=== PATIENT | male | born 1960 | race Caucasian/White ===

== ENCOUNTER 2018-08-15 14:42 | Inpatient (IN) | payer OTHER ==
[~2018-08-15] VITALS: Ht 175.3 cm; Wt 130.2 kg
[2018-08-15] MEDS ORDERED: IV NORMAL SALINE 1,000ML 1,000 ML IV SCH (14:55)
--- NOTE | 2018-08-15 15:13 | PHYS DOC ---
Past History Past Medical History: High Cholesterol, Hypertension, Kidney Stones, NE, Renal Disease, Other Additional Past Medical Histor: chronic pain Past Surgical History: Cholecystectomy, Other Smoking: Cigarettes Alcohol Use: None Drug Use: None Adult General Chief Complaint Chief Complaint: WEAKNESS/GENERALIZED HPI HPI Patient is a 57-year-old male presents complaining of generalized weakness. Patient was seen at [facility] this morning after having a syncopal episode in his physician's office. He was at the physician's office trying to get a refill of his long-term narcotic pain medicine. Patient has recently been on clonidine for the withdrawal symptoms. He stopped the clonidine a day ago. He was found to have low potassium while at [facility], reportedly treated, and released. He presented back to his physician's office trying to get the refill of his narcotic medicine but continued to feel weak. The patient's physician called EMS for transport to the hospital. Patient reports that his physician is unable to fill the narcotic pain medicine early. Patient denies any chest pains or palpitations. Denies any new nausea, vomiting, or diarrhea. There is no focality to the weakness. [] Review of Systems Review of Systems Constitutional: Denies fever or chills [] Eyes: Denies change in visual acuity, redness, or eye pain [] HENT: Denies nasal congestion or sore throat [] Respiratory: Denies cough or shortness of breath [] Cardiovascular: No chest pain or palpitations[] GI: Denies abdominal pain, nausea, vomiting, bloody stools or diarrhea [] : Denies dysuria or hematuria [] Musculoskeletal: Denies back pain or joint pain [] Integument: Denies rash or skin lesions [] Neurologic: Denies headache, focal weakness or sensory changes [] Endocrine: Denies polyuria or polydipsia [] All other systems were reviewed and found to be within normal limits, except as documented in this note. Current Medications Current Medications Current Medications Medications (Trade) Dose Ordered Sig/Rebel Start Time Stop Time Status Last Admin Dose Admin Sodium Chloride 1,000 ml @ 1,000 mls/hr Q1H 08/15/18 14:55 08/15/18 15:54 Allergies Allergies Allergies Coded Allergies Type Severity Reaction Last Updated Verified No Known Drug Allergies 08/15/18 No Physical Exam Physical Exam Constitutional: Well developed, well nourished, no acute distress, non-toxic a ppearance. [] HENT: Normocephalic, atraumatic, bilateral external ears normal, oropharynx moist, no oral exudates, nose normal. [] Eyes: PERRLA, EOMI, conjunctiva normal, no discharge. [] Neck: Normal range of motion, no tenderness, supple, no stridor. [] Cardiovascular:Heart rate regular rhythm, no murmur [] Lungs & Thorax: Bilateral breath sounds clear to auscultation [] Abdomen: Bowel sounds normal, soft, no tenderness, no masses, no pulsatile masses. [] Skin: Warm, dry, no erythema, no rash. [] Back: No tenderness, no CVA tenderness. [] Extremities: No tenderness, no cyanosis, no clubbing, ROM intact, no edema. [] Neurologic: Alert and oriented X 3, normal motor function, normal sensory function, no focal deficits noted. [] Psychologic: Affect normal, judgement normal, mood normal. [] Current Patient Data Vital Signs Vital Signs Date Time Temp Pulse Resp B/P (MAP) Pulse Ox O2 Delivery O2 Flow Rate FiO2 08/15/18 14:50 97.7 54 21 96 Room Air EKG EKG EKG shows a sinus rhythm with no ST elevations. Heart rate of 55 bpm, normal axis, QTC of 433 ms. Interpreted by me at 1505[] Radiology/Procedures Radiology/Procedures PORTABLE CHEST 1V History: Weakness. Low blood pressure. Comparison with 05/23/2005 image. The heart size is mildly widened in transverse diameter, similar to prior study. No evidence of pneumothorax. No lobar consolidation or large pleural effusion. Limited visualization of the lung bases due to body habitus. IMPRESSION: Stable exam, no evidence of lobar consolidation.[] Course & Med Decision Making Course & Med Decision Making Pertinent Labs and Imaging studies reviewed. (See chart for details) ED course: Patient arrived, was placed in bed, and tolerated exam well. He was noted to be hypotensive initially which did improve with IV fluids. After the return of lab and imaging studies, these were discussed with the patient and family voiced understanding. Consultation was made with hospitalist service who graciously accepted the patient for admission. He was admitted in improved condition. Medical decision making: Patient with hypotensive episode and feeling of weakness in the face of recent hypokalemia. Records were obtained from [facility] that showed his potassium was 2.4 earlier today. Patient also has baseline renal disease which appears to be stable with his creatinine being 2.1 today as it was in the past. However, his liver function tests are also elevated at this ti me. He is being admitted for further evaluation and treatment.[] Dragon Disclaimer Dragon Disclaimer This electronic medical record was generated, in whole or in part, using a voice recognition dictation system. Departure Departure: Impression: Primary Impression: Weakness Additional Impressions: Hypotensive episode Hypokalemia Disposition: ADMITTED INPATIENT Admitting Physician: Saravanan Marcelo Condition: IMPROVED Referrals: LIAM BROWN MD (PCP) Problem Qualifiers RADHA YUSUF DO Aug 15, 2018 15:12
--- NOTE | 2018-08-15 15:17 | RAD ---
PORTABLE CHEST 1V History: Weakness. Low blood pressure. Comparison with 05/23/2005 image. The heart size is mildly widened in transverse diameter, similar to prior study. No evidence of pneumothorax. No lobar consolidation or large pleural effusion. Limited visualization of the lung bases due to body habitus. IMPRESSION: Stable exam, no evidence of lobar consolidation. Electronically signed by: Byron Shea MD (08/15/2018 3:14 PM) [id number]
[2018-08-15 15:24] LABS: BASO # 0.1 x10^3/uL (0.0-0.2); BASO % 1 % (0-3); EOS % 0 % (0-3); HEMATOCRIT 45.5 % (39.0-53.0); HEMOGLOBIN 15.8 g/dL (13.0-17.5); LYMPH # 0.8 x10^3/uL (1.0-4.8); LYMPH % 8 % (24-48); MEAN CORPUSCULAR HEMOGLOBIN 31 pg (25-35); MEAN CORPUSCULAR HGB CONC 35 g/dL (31-37); MEAN CORPUSCULAR VOLUME 89 fL (79-100); MONO # 0.6 x10^3/uL (0.0-1.1); MONO % 7 % (0-9); NEUT % 84 % (31-73); PLATELET COUNT 269 x10^3/uL (140-400); RED BLOOD COUNT 5.13 x10^6/uL (4.30-5.70); RED CELL DISTRIBUTION WIDTH 16.4 % (11.5-14.5); WHITE BLOOD COUNT 9.5 x10^3/uL (4.0-11.0)
[2018-08-15] MEDS ORDERED: IV RINGERS SOLUTION,LACTATED 1,000 ML IV ONE ×2 (15:30→17:15)
[2018-08-15 16:12] LABS: ALBUMIN/GLOBULIN RATIO 0.9 (1.0-1.7); CALCIUM 8.4 mg/dL (8.5-10.1); CREATININE 2.1 mg/dL (0.7-1.3); GFR 32.5; MAGNESIUM 2.1 mg/dL (1.8-2.4); TOTAL BILIRUBIN 2.9 mg/dL (0.2-1.0); TOTAL PROTEIN 6.3 g/dL (6.4-8.2)
[2018-08-15 16:38] LABS: BILIRUBIN,URINE SMALL (NEG); CLARITY,URINE CLOUDY; COLOR,URINE AMBER; GLUCOSE,URINE NEG (NEG); NITRITE,URINE NEG (NEG); UROBILINOGEN,URINE 4 mg/dL (0.2 mg/dL)
[2018-08-15 16:39] LABS: AMPHETAMINE/METHAMPHETAMINE NEG (NEG); BACTERIA,URINE FEW /HPF (0-FEW); BARBITURATES NEG (NEG); BENZODIAZEPINES POS (NEG); CANNABINOIDS NEG (NEG); COCAINE NEG (NEG); HYALINE CASTS, URINE OCC /HPF; METHADONE NEG (NEG); OPIATES NEG (NEG); PHENCYCLIDINE NEG (NEG); RBC,URINE 0 /HPF (0-2); SQUAMOUS EPITHELIAL CELL,UR OCC /LPF; WBC,URINE OCC /HPF (0-4)
[2018-08-15] MEDS ORDERED: ACETAMINOPHEN 325 MG TABLET PO PRN ×2 (17:15→17:45)
[2018-08-15] MEDS ORDERED: ONDANSETRON PF 4 MG/2 ML VIAL. IV PRN ×2 (17:15→17:45)
[2018-08-15] MEDS ORDERED: oxyCODONE IR 5 MG TABLET PO PRN ×2 (17:45)
[2018-08-15] MEDS ORDERED: METOCLOPRAMIDE HCL 10 MG/2 ML VIAL. IV PRN (17:45)
[2018-08-15] MEDS ORDERED: HYDROmorphone PF 1 MG/ML DISP.SYRIN IV PRN (17:45)
[2018-08-15] MEDS ORDERED: LACTULOSE 20 GM/30 ML SOLUTION. PO PRN (17:45)
--- NOTE | 2018-08-15 18:57 | HP ---
ADMIT DATE: 08/15/2018 ATTENDING PHYSICIAN: Dr. Carrasco. CHIEF COMPLAINT: Weakness. HISTORY OF PRESENT ILLNESS: The patient is a 57-year-old gentleman admitted through the ED. He was sent to the Emergency Department by his primary care doctor. Earlier this morning, he was seen at [facility] having a syncopal episode in the physician's office. He was dry, blood pressure was low, it lasted between 2-5 minutes. He had been on clonidine. In addition, he has had blood pressure medication and diuretic. He was quite dry. He was found to have low potassium, reportedly treated and released. He presented back to his physician's office, trying to get the refill the narcotic, but continued to feel weak. The patient's doctor called the EMS for transport to the hospital. In the ED, the potassium was replaced from 2.4 mEq up to 3.0 mEq. There were no arrhythmias. He has not had any nausea or vomiting. He was admitted then with dehydration. Clinically, he is dry, aggravated by his diuretics. PAST MEDICAL HISTORY: Significant for medullary sponge kidneys. He has multiple kidney stones. He has chronic kidney disease stage 4, essential hypertension, previous DE with little history. He does not drink any alcohol. He has had a previous cholecystectomy. CURRENT MEDICATIONS: Reviewed. He was taking lisinopril, hydrochlorothiazide, OxyContin, clonidine, which has been stopped. In the ED, he was given Lactated Ringer's solution, potassium supplementation, lactulose, hydromorphone, and Reglan. ALLERGIES: He has no reported drug allergy. SOCIAL HISTORY: He is a smoker, half a pack of cigarettes daily. He denies any alcohol use. FAMILY HISTORY: Father at age of stomach cancer. Mom at age 75 of heart disease. He is . He is disabled for the last 10 years. REVIEW OF SYSTEMS: Significant for his generalized weakness. He denied any palpitations. He denied any fevers or chills. He had a syncopal episode, but he did not have any seizure activity. No loss of bowel or bladder function. He denied any chest pain, palpitations. All other systems were reviewed and determined to be negative. PHYSICAL EXAMINATION: GENERAL: When I saw him, this is a pleasant, chronically ill-appearing gentleman. INITIAL VITAL SIGNS: In the ED showed a blood pressure 100 systolic. His heart rate was 54 and regular, respirations are unlabored. Oxygen saturation 96% on room air. HEENT: Head is without trauma. Pupils are reactive. Sclerae are nonicteric. The oropharynx is clear. NECK: Supple. No bruits identified. LUNGS: Otherwise clear. CARDIOVASCULAR: Irregular heart tones. No gallops, no murmurs. Peripheral pulses are palpable. ABDOMEN: Soft, scaphoid, nontender. No flank tenderness. Bowel sounds are hypoactive. EXTREMITIES: Show no cyanosis or edema. NEUROLOGIC: Focally intact. No focal deficits. Speech is fluent. SKIN: Warm, dry. No lymphangitis, LABORATORY DATA: His admission hemoglobin was 15.8 g/dL in a hemoconcentrated state. White count 9500, platelets are adequate. Chemistry panel showed sodium 133 mEq, potassium 3.0 mEq per liter. Creatinine is 2.1 mg per dL, which is close to his baseline. BUN is 18, anion gap is 8. Bilirubin is elevated at 2.9. Transaminases slightly elevated with AST of 285, alkaline phosphatase is 154, total protein 6.3 grams per liter. IMPRESSION: 1. A 57-year-old gentleman with dehydration that is symptomatic. 2. Hypokalemia, aggravated by hydrochlorothiazide. 3. Essential hypertension. 4. Chronic kidney disease stage 4 and he is close to baseline. 5. Elevated liver functions. Etiology is unclear. He denies any alcohol use. 6. Generalized debilitation. 7. History of kidney stones. 8. History of medullary sponge kidney. PLAN: 1. Admit to the inpatient unit. 2. I have held his lisinopril and hydrochlorothiazide. 3. Continue pain meds. 4. Gentle IV hydration. 5. Serial chemistries. 6. Diet as tolerated. 7. Pain management. TREVIN CARRASCO MD DR: GRACIELA/rishi JOB#: [id number] / [id number] Alexandra Henning MD
[2018-08-15] MEDS ORDERED: ALPR1TAB6 PO (21:48)
[2018-08-15] MEDS ORDERED: NALO12.5 PO (21:48)
[2018-08-15] MEDS ORDERED: LOSA1TAB22 PO (21:48)
[2018-08-15] MEDS ORDERED: TIZA4CAP PO (21:48)
[2018-08-15] MEDS ORDERED: CRESTOR40 MG PO (21:48)
[2018-08-15] MEDS ORDERED: METO25TA2 PO (21:48)
[2018-08-15] MEDS ORDERED: POTA10TA10 PO (21:48)
[2018-08-15] MEDS ORDERED: GLUC-12 PO (21:48)
[2018-08-15] MEDS ORDERED: NITR0.4T22 SL (21:48)
[2018-08-15] MEDS ORDERED: CLOP75TA PO (21:48)
[2018-08-15] MEDS ORDERED: AMLO10TA8 PO (21:48)
[2018-08-15] MEDS ORDERED: ASPI-39 PO (21:48)
[2018-08-15] MEDS ORDERED: ALLO100T PO (21:48)
[2018-08-15] MEDS ORDERED: OXYC15TA60 PO (21:48)
[2018-08-15 22:03] VITALS: BP 127/72
[2018-08-15] MEDS: IV NORMAL SALINE 1,000ML 1,000 ML IV SCH (22:41)
[2018-08-15 23:17] VITALS: BP 138/79
[2018-08-16] MEDS: IV NORMAL SALINE 1,000ML 1,000 ML IV SCH ×2 (04:30→14:30)
[2018-08-16 05:24] VITALS: BP 142/89
[2018-08-16 06:59] LABS: BASO % 0 % (0-3); EOS % 0 % (0-3); HEMATOCRIT 44.5 % (39.0-53.0); HEMOGLOBIN 15.8 g/dL (13.0-17.5); LYMPH # 0.4 x10^3/uL (1.0-4.8); LYMPH % 4 % (24-48); MEAN CORPUSCULAR HEMOGLOBIN 31 pg (25-35); MEAN CORPUSCULAR HGB CONC 35 g/dL (31-37); MEAN CORPUSCULAR VOLUME 88 fL (79-100); MONO # 0.6 x10^3/uL (0.0-1.1); MONO % 6 % (0-9); NEUT # 9.2 x10^3uL (1.8-7.7); NEUT % 89 % (31-73); PLATELET COUNT 201 x10^3/uL (140-400); RED BLOOD COUNT 5.05 x10^6/uL (4.30-5.70); RED CELL DISTRIBUTION WIDTH 16.5 % (11.5-14.5); WHITE BLOOD COUNT 10.3 x10^3/uL (4.0-11.0)
[2018-08-16] MEDS ORDERED: tiZANidine 4 MG TABLET. PO PRN (07:00)
[2018-08-16 07:15] LABS: ALBUMIN 3.1 g/dL (3.4-5.0); ALBUMIN/GLOBULIN RATIO 0.9 (1.0-1.7); CALCIUM 8.8 mg/dL (8.5-10.1); CREATININE 1.7 mg/dL (0.7-1.3); TOTAL BILIRUBIN 5.3 mg/dL (0.2-1.0); TOTAL PROTEIN 6.7 g/dL (6.4-8.2)
[2018-08-16] MEDS ORDERED: oxyCODONE ER 15 MG TAB.ER.12H PO PRN (07:15)
[2018-08-16 07:20] LABS: POTASSIUM 2.8 mmol/L (3.5-5.1)
[2018-08-16 07:21] LABS: GFR 41.5
[2018-08-16] MEDS: POTASSIUM CHLORIDE 20 MEQ TABLET.ER. PO SCH ×3 (07:24→21:08)
[2018-08-16] MEDS ORDERED: MAGNESIUM SULFATE 1GM 100 ML IV ONE (07:30)
[2018-08-16] MEDS ORDERED: POTASSIUM CHLORIDE 20 MEQ/15 ML ORAL LIQUID. FT SCH (07:30)
[2018-08-16] MEDS: ASPIRIN 81 MG TAB.CHEW PO SCH (08:46)
[2018-08-16] MEDS: ALLOPURINOL 100 MG TABLET. PO SCH (08:46)
[2018-08-16] MEDS: amLODIPine BESYLATE 10 MG TABLET PO SCH (08:46)
[2018-08-16] MEDS: METOPROLOL SUCC 24HR ER 25 MG TAB.ER.24H. PO SCH (08:46)
[2018-08-16] MEDS: ALPRAZolam 0.5 MG TABLET PO SCH ×2 (08:46→21:08)
--- NOTE | 2018-08-16 09:59 | PDOC ---
SUBJECTIVE: CC: weakness at bedside Confused this Am paranoid, he called the police and said his was stealing from him His PCP is trying to wean him off narcotics creatinine is better, Potassium is being replaced However, liver panel is abnormal Bilirubin up to 5.9 mg/dl transanimases up. alkaline phosphatase not particularly high. Pt denies significant alcohol ingestion, nor IV drug use, corroborated by his . OBJECTIVE: Problems: Problems Medical Problems: (1) Hypokalemia Status: Acute (2) Hypotensive episode Status: Acute (3) Weakness Status: Acute Creatinine 1.7 mg/dl Bilirubin and transaminases elevated Vital Signs: Vital Signs Date Time Temp Pulse Resp B/P (MAP) Pulse Ox O2 Delivery O2 Flow Rate FiO2 08/16/18 08:46 77 142/89 08/16/18 05:24 98.4 96 Room Air 08/15/18 18:23 18 I & O Intake and Output 08/16/18 07:00 Intake Total 750 ml Balance 750 ml Intake Oral 450 ml IV Total 300 ml # Voids 3 # Bowel Movements 1 Labs: Laboratory Tests Test 08/15/18 15:08 08/15/18 15:35 08/15/18 16:10 08/16/18 06:40 White Blood Count 9.5 x10^3/uL (4.0-11.0) 10.3 x10^3/uL (4.0-11.0) Red Blood Count 5.13 x10^6/uL (4.30-5.70) 5.05 x10^6/uL (4.30-5.70) Hemoglobin 15.8 g/dL (13.0-17.5) 15.8 g/dL (13.0-17.5) Hematocrit 45.5 % (39.0-53.0) 44.5 % (39.0-53.0) Mean Corpuscular Volume 89 fL (79-100) 88 fL (79-100) Mean Corpuscular Hemoglobin 31 pg (25-35) 31 pg (25-35) Mean Corpuscular Hemoglobin Concent 35 g/dL (31-37) 35 g/dL (31-37) Red Cell Distribution Width 16.4 % (11.5-14.5) 16.5 % (11.5-14.5) Platelet Count 269 x10^3/uL (140-400) 201 x10^3/uL (140-400) Neutrophils (%) (Auto) 84 % (31-73) 89 % (31-73) Lymphocytes (%) (Auto) 8 % (24-48) 4 % (24-48) Monocytes (%) (Auto) 7 % (0-9) 6 % (0-9) Eosinophils (%) (Auto) 0 % (0-3) 0 % (0-3) Basophils (%) (Auto) 1 % (0-3) 0 % (0-3) Neutrophils # (Auto) 8.0 x10^3uL (1.8-7.7) 9.2 x10^3uL (1.8-7.7) Lymphocytes # (Auto) 0.8 x10^3/uL (1.0-4.8) 0.4 x10^3/uL (1.0-4.8) Monocytes # (Auto) 0.6 x10^3/uL (0.0-1.1) 0.6 x10^3/uL (0.0-1.1) Eosinophils # (Auto) 0.0 x10^3/uL (0.0-0.7) 0.0 x10^3/uL (0.0-0.7) Basophils # (Auto) 0.1 x10^3/uL (0.0-0.2) 0.0 x10^3/uL (0.0-0.2) Troponin I Quantitative 0.025 ng/mL (0-0.055) Prothrombin Time 10.8 SEC (9.4-11.4) Prothromb Time International Ratio 1.1 (0.9-1.1) Sodium Level 133 mmol/L (136-145) 136 mmol/L (136-145) Potassium Level 3.0 mmol/L (3.5-5.1) 2.8 mmol/L (3.5-5.1) Chloride Level 95 mmol/L (98-107) 97 mmol/L (98-107) Carbon Dioxide Level 30 mmol/L (21-32) 28 mmol/L (21-32) Anion Gap 8 (6-14) 11 (6-14) Blood Urea Nitrogen 18 mg/dL (8-26) 15 mg/dL (8-26) Creatinine 2.1 mg/dL (0.7-1.3) 1.7 mg/dL (0.7-1.3) Estimated GFR (Cockcroft-Gault) 32.5 41.5 BUN/Creatinine Ratio 9 (6-20) 9 (6-20) Glucose Level 170 mg/dL (70-99) 140 mg/dL (70-99) Calcium Level 8.4 mg/dL (8.5-10.1) 8.8 mg/dL (8.5-10.1) Magnesium Level 2.1 mg/dL (1.8-2.4) Total Bilirubin 2.9 mg/dL (0.2-1.0) 5.3 mg/dL (0.2-1.0) Aspartate Amino Transf (AST/SGOT) 285 U/L (15-37) 297 U/L (15-37) Alanine Aminotransferase (ALT/SGPT) 163 U/L (16-63) 317 U/L (16-63) Alkaline Phosphatase 154 U/L (46-116) 193 U/L (46-116) Total Protein 6.3 g/dL (6.4-8.2) 6.7 g/dL (6.4-8.2) Albumin 3.0 g/dL (3.4-5.0) 3.1 g/dL (3.4-5.0) Albumin/Globulin Ratio 0.9 (1.0-1.7) 0.9 (1.0-1.7) Urine Collection Type Unknown Urine Color Samra Urine Clarity Cloudy Urine pH 6.0 Urine Specific [place] 1.015 Urine Protein 30 mg/dl (NEG-TRACE) Urine Glucose (UA) Neg mg/dL (NEG) Urine Ketones (Stick) Neg mg/dL (NEG) Urine Blood Trace (NEG) Urine Nitrite Neg (NEG) Urine Bilirubin Small (NEG) Urine Urobilinogen Dipstick 4 mg/dL (0.2 mg/dL) Urine Leukocyte Esterase Neg (NEG) Urine RBC 0 /HPF (0-2) Urine WBC Occ /HPF (0-4) Urine Squamous Epithelial Cells Occ /LPF Urine Bacteria Few /HPF (0-FEW) Urine Hyaline Casts Occ /HPF Urine Mucus Slight /LPF Urine Opiates Screen Neg (NEG) Urine Methadone Screen Neg (NEG) Urine Barbiturates Neg (NEG) Urine Phencyclidine Screen Neg (NEG) Urine Amphetamine/Methamphetamine Neg (NEG) Urine Benzodiazepines Screen Pos (NEG) Urine Cocaine Screen Neg (NEG) Urine Cannabinoids Screen Neg (NEG) Urine Ethyl Alcohol Neg (NEG) Physical Exam: HEENT; some scleral icterus Neck supple Lungs: clear CV RRR Abd: soft, nontender, no guarding nor rebound Ext: trace edema Neuro: alert, speech fluent. ASSESSMENT: Dehydration, rehydrated Hypokalemia due to diuretics Confusion related Narcotic withdrawl Abnormal LFTs and Bilirubin Medullary sponge kidneys Chronic pain syndrome PLAN: Continue IV hydration Serial chemistries Potassium and Magnesium replacement if LFTs remain elevated, Triphase CT scan liver and hepatitis serology TREVIN CARRASCO MD Aug 16, 2018 09:59
[2018-08-16 11:18] VITALS: BP 148/80
[2018-08-16 16:25] VITALS: BP 158/80
[2018-08-16 19:10] VITALS: BP 149/79
[2018-08-16] MEDS ORDERED: ATORVASTATIN CALCIUM 20 MG TABLET PO SCH (21:00)
[2018-08-16] MEDS ORDERED: CLOPIDOGREL BISULFATE 75 MG TABLET PO SCH (21:00)
[2018-08-16 22:15] VITALS: BP 157/74
[2018-08-17] MEDS: IV NORMAL SALINE 1,000ML 1,000 ML IV SCH (03:22)
[2018-08-17 05:46] VITALS: BP 129/72
[2018-08-17 07:19] LABS: BASO % 1 % (0-3); EOS % 0 % (0-3); HEMATOCRIT 43.3 % (39.0-53.0); LYMPH # 0.4 x10^3/uL (1.0-4.8); LYMPH % 5 % (24-48); MEAN CORPUSCULAR HEMOGLOBIN 31 pg (25-35); MEAN CORPUSCULAR HGB CONC 35 g/dL (31-37); MEAN CORPUSCULAR VOLUME 90 fL (79-100); MONO # 0.5 x10^3/uL (0.0-1.1); MONO % 7 % (0-9); NEUT # 6.8 x10^3uL (1.8-7.7); NEUT % 88 % (31-73); PLATELET COUNT 205 x10^3/uL (140-400); RED BLOOD COUNT 4.84 x10^6/uL (4.30-5.70); RED CELL DISTRIBUTION WIDTH 16.8 % (11.5-14.5); WHITE BLOOD COUNT 7.7 x10^3/uL (4.0-11.0)
[2018-08-17 07:26] LABS: ALBUMIN 2.9 g/dL (3.4-5.0); ALBUMIN/GLOBULIN RATIO 0.8 (1.0-1.7); CALCIUM 8.7 mg/dL (8.5-10.1); CREATININE 1.7 mg/dL (0.7-1.3); DIRECT BILIRUBIN 2.7 mg/dL (0.0-0.2); GFR 41.5; POTASSIUM 3.2 mmol/L (3.5-5.1); TOTAL BILIRUBIN 3.8 mg/dL (0.2-1.0); TOTAL PROTEIN 6.6 g/dL (6.4-8.2)
[2018-08-17] MEDS: POTASSIUM CHLORIDE 20 MEQ TABLET.ER. PO SCH ×2 (08:00→08:29)
[2018-08-17] MEDS: amLODIPine BESYLATE 10 MG TABLET PO SCH (08:28)
[2018-08-17] MEDS: ASPIRIN 81 MG TAB.CHEW PO SCH (08:28)
[2018-08-17] MEDS: ALLOPURINOL 100 MG TABLET. PO SCH (08:28)
[2018-08-17 08:29] VITALS: BP 129/72
[2018-08-17] MEDS: METOPROLOL SUCC 24HR ER 25 MG TAB.ER.24H. PO SCH (08:29)
[2018-08-17] MEDS: ALPRAZolam 0.5 MG TABLET PO SCH (08:29)
--- NOTE | 2018-08-17 17:58 | DS ---
DATE OF DISCHARGE: 08/17/2018 ATTENDING PHYSICIAN: Dr. Carrasco. FINAL DISCHARGE DIAGNOSES: 1. Dehydration, symptomatic. 2. Hypokalemia, aggravated by hydrochlorothiazide. 3. Essential hypertension. 4. Chronic kidney disease stage 4. 5. Elevated liver function, etiology unclear, improving. 6. Generalized debilitation. 7. History of medullary sponge kidneys. 8. Multiple kidney stones in the past. HOSPITAL COURSE: This is a 57-year-old gentleman with dehydration sent over by his primary care physician. He had been on clonidine. He was also hypotensive. Potassium was low down to 2.4 mEq. He was admitted for further treatment and evaluation. He has underlying chronic kidney disease due to medullary sponge kidneys and multiple stones in the past. PHYSICAL EXAMINATION: Please see the dictated note. PERTINENT LABORATORY AND X-RAY STUDIES. Admission hemoglobin 15.8 g/dL with a normal white count at 9500. Chemistry panel showed potassium replaced up to 3.2 mEq with potassium and magnesium supplementation. Serum creatinine has stabilized and is holding at 1.7 mg/dL, BUN was 15. His total bilirubin peaked at a level of 5.3 on the second hospital day; repeated the next day, it was down to 3.8. AST, ALT, and alkaline phosphatase all improved and were trending downwards. His ammonia level was 10. COURSE IN THE HOSPITAL: The patient was admitted with dehydration and hypokalemia. He was given IV hydration. Diet was advanced. Pain managed and serial chemistries were drawn. Potassium and magnesium supplementation were added. He had elevated liver enzymes; etiology to be unclear. Bilirubin peaked at 5.9, but it trended downwards. I had hoped to keep him here for a couple more days, he was feeling better, he wanted to go home. On the third hospital day, he had no further symptoms. His blood pressure was normotensive and he wanted to go home. I felt this is reasonable. Therefore, he is discharged home with continuation of his amlodipine, potassium supplementation, allopurinol, alprazolam, aspirin daily, Plavix daily, chondroitin sulfate, metoprolol, Movantik, K-Dur supplementation and Crestor; doses unchanged. For now, I took the liberty of holding his hydrochlorothiazide, losartan, OxyContin and Zanaflex. He will follow up with his regular physician. He was discharged from our hospital in stable condition with explicit instructions and followup care in improved condition. TREVIN CARRASCO MD DR: GRACIELA/rishi JOB#: [id number] / [id number] MAXWELL Mionr MD
== END 2018-08-17 11:13 | disposition home or self-care (01) | DRG 640 ==
LOC: ER 14:42 → 1 SOUTH 16:50 → UNDOADMIN 16:50 → 1 SOUTH 18:41
PROVIDERS: ADMIT Hospitalist; ATTEND Internal Medicine
DX: E86.0 Dehydration (principal); N17.0 Acute kidney failure with tubular necrosis; F11.23 Opioid dependence with withdrawal; N18.4 Chronic kidney disease, stage 4 (severe); E87.6 Hypokalemia; I95.9 Hypotension, unspecified; E78.00 Pure hypercholesterolemia, unspecified; F17.200 Nicotine dependence, unspecified, uncomplicated; G89.4 Chronic pain syndrome; I12.9 Hypertensive chronic kidney disease with stage 1 through stage 4 chronic kidney disease, or unspecified chronic kidney disease; I25.2 Old myocardial infarction; T50.2X5A Adverse effect of carbonic-anhydrase inhibitors, benzothiadiazides and other diuretics, initial encounter; Z80.0 Family history of malignant neoplasm of digestive organs; Z79.82 Long term (current) use of aspirin; Z87.442 Personal history of urinary calculi; Z90.49 Acquired absence of other specified parts of digestive tract; Y92.89 Other specified places as the place of occurrence of the external cause; Z79.899 Other long term (current) drug therapy
CPT/HCPCS: 36415; 51702; 71045; 80053; 80307; 81001; 82140; 82248; 83735; 84132; 84484; 85025; 85610; 93005; 96360; J3475; J7120; 99285-25; J7030

== ENCOUNTER 2018-09-01 13:47 | Emergency (ER) | payer OTHER ==
[~2018-09-01] VITALS: Ht 175.3 cm; Wt 127.1 kg
[~2018-09-01 13:47] MED LIST: ALLO100T PO; ALPR1TAB6 PO; AMLO10TA8 PO; ASPI-39 PO; CLOP75TA PO; CRESTOR40 MG PO; GLUC-12 PO; LOSA1TAB22 PO; METO25TA2 PO; NALO12.5 PO; NITR0.4T22 SL; OXYC15TA60 PO; POTA10TA10 PO; TIZA4CAP PO
[2018-09-01 14:31] VITALS: BP 131/75
--- NOTE | 2018-09-01 14:31 | RAD ---
EXAM: CHEST 1 VIEW History: Shortness of breath COMPARISON: 08/15/2018 TECHNIQUE: Single portable radiograph of the chest FINDINGS: The cardiac silhouette is unremarkable. The lungs are clear bilaterally. The costophrenic sulci are clear and well demarcated. IMPRESSION: No radiographic evidence of an acute cardiopulmonary process. Electronically signed by: Kd Akbar MD (09/01/2018 2:29 PM) [id number]
[2018-09-01 14:34] LABS: BASO % 1 % (0-3); EOS # 0.3 x10^3/uL (0.0-0.7); EOS % 4 % (0-3); HEMATOCRIT 49.6 % (39.0-53.0); HEMOGLOBIN 16.8 g/dL (13.0-17.5); LYMPH # 2.2 x10^3/uL (1.0-4.8); LYMPH % 28 % (24-48); MEAN CORPUSCULAR HEMOGLOBIN 31 pg (25-35); MEAN CORPUSCULAR HGB CONC 34 g/dL (31-37); MEAN CORPUSCULAR VOLUME 92 fL (79-100); MONO # 0.5 x10^3/uL (0.0-1.1); MONO % 6 % (0-9); NEUT # 4.9 x10^3uL (1.8-7.7); NEUT % 62 % (31-73); PLATELET COUNT 312 x10^3/uL (140-400); RED BLOOD COUNT 5.41 x10^6/uL (4.30-5.70); RED CELL DISTRIBUTION WIDTH 16.4 % (11.5-14.5); WHITE BLOOD COUNT 7.9 x10^3/uL (4.0-11.0)
--- NOTE | 2018-09-01 14:39 | PHYS DOC ---
Past History Past Medical History: High Cholesterol, Hypertension, Kidney Stones, [place], Renal Disease, Other Additional Past Medical Histor: chronic pain Past Surgical History: Cholecystectomy, Other Smoking: Cigarettes Alcohol Use: None Drug Use: None Adult General Chief Complaint Chief Complaint: SHORTNESS OF BREATH HPI HPI Patient is a 57 year old male who presents with complaint of shortness of breath. Patient states his symptoms have been worsening over the past week. Does have history of congestive heart failure and chronic renal failure. Recently discontinued on narcotic medications for treatment of low back pain. Denies any chest pain currently. States that his shortness of breath is worse with mild exertion. Denies any fevers. Has been having nonproductive cough. Has not noticed any worsening swelling in his lower extremities. Has not taking medications for symptoms. Went to see his primary physician, Dr. Viera, and he was referred to the emergency department for further evaluation for concern of possible pulmonary embolism. Review of Systems Review of Systems Constitutional: Denies fever or chills [] Eyes: Denies change in visual acuity, redness, or eye pain [] HENT: Denies nasal congestion or sore throat [] Respiratory: Shortness of breath, cough[] Cardiovascular: Denies chest pain or edema[] GI: Denies abdominal pain, nausea, vomiting, bloody stools or diarrhea [] : Denies dysuria or hematuria [] Musculoskeletal: Chronic back pain[] Integument: Denies rash or skin lesions [] Neurologic: Denies headache, focal weakness or sensory changes [] All other systems were reviewed and found to be within normal limits, except as documented in this note. Allergies Allergies Allergies Coded Allergies Type Severity Reaction Last Updated Verified No Known Drug Allergies 08/15/18 No Physical Exam Physical Exam Constitutional: Alert, afebrile, appears in mild respiratory distress. [] HENT: Normocephalic, atraumatic, bilateral external ears normal, oropharynx moist, no oral exudates, nose normal. [] Eyes: PERRLA, EOMI, conjunctiva normal, no discharge. [] Neck: Normal range of motion, no tenderness, supple, no stridor. [] Cardiovascular:Heart rate regular rhythm, no murmur [] Lungs & Thorax: Bilateral breath sounds clear to auscultation [] Abdomen: Bowel sounds normal, soft, no tenderness, no masses, no pulsatile masses. [] Skin: Warm, dry, no erythema, no rash. [] Back: No tenderness, no CVA tenderness. [] Extremities: No tenderness, no cyanosis, no clubbing, ROM intact, trace pedal edema bilaterally. [] Neurologic: Alert and oriented X 3, normal motor function, normal sensory function, no focal deficits noted. [] Current Patient Data Vital Signs Vital Signs Date Time Temp Pulse Resp B/P (MAP) Pulse Ox O2 Delivery O2 Flow Rate FiO2 09/01/18 14:31 98.1 76 22 98 Room Air Lab Results Laboratory Tests Test 09/01/18 14:14 White Blood Count 7.9 x10^3/uL Red Blood Count 5.41 x10^6/uL Hemoglobin 16.8 g/dL Hematocrit 49.6 % Mean Corpuscular Volume 92 fL Mean Corpuscular Hemoglobin 31 pg Mean Corpuscular Hemoglobin Concent 34 g/dL Red Cell Distribution Width 16.4 % Platelet Count 312 x10^3/uL Neutrophils (%) (Auto) 62 % Lymphocytes (%) (Auto) 28 % Monocytes (%) (Auto) 6 % Eosinophils (%) (Auto) 4 % Basophils (%) (Auto) 1 % Neutrophils # (Auto) 4.9 x10^3uL Lymphocytes # (Auto) 2.2 x10^3/uL Monocytes # (Auto) 0.5 x10^3/uL Eosinophils # (Auto) 0.3 x10^3/uL Basophils # (Auto) 0.0 x10^3/uL Prothrombin Time 9.5 SEC Prothromb Time International Ratio 1.0 Activated Partial Thromboplast Time 25 SEC D-Dimer (Tonya) 0.41 mg/L Sodium Level 141 mmol/L Potassium Level 3.6 mmol/L Chloride Level 102 mmol/L Carbon Dioxide Level 29 mmol/L Anion Gap 10 Blood Urea Nitrogen 9 mg/dL Creatinine 1.8 mg/dL Estimated GFR (Cockcroft-Gault) 38.8 BUN/Creatinine Ratio 5 Glucose Level 179 mg/dL Calcium Level 9.1 mg/dL Magnesium Level 2.0 mg/dL Total Bilirubin 0.5 mg/dL Aspartate Amino Transf (AST/SGOT) 14 U/L Alanine Aminotransferase (ALT/SGPT) 45 U/L Alkaline Phosphatase 209 U/L Creatine Kinase 32 U/L Creatine Kinase MB (Mass) 0.9 ng/mL Creatine Kinase MB Relative Index 2.8 % Troponin I Quantitative < 0.017 ng/mL Total Protein 7.1 g/dL Albumin 3.3 g/dL Albumin/Globulin Ratio 0.9 EKG EKG Interpreted by me: Heart rate 89, sinus rhythm, limited study secondary to artifact, no acute ST elevations or depressions[] Radiology/Procedures Radiology/Procedures [address] [address] IMAGING REPORT Signed PATIENT: SMITH LANGE ACCOUNT: [id number] : 1960 LOCATION: ER AGE: 57 SEX: M EXAM STATUS: REG ER ORD. PHYSICIAN: DALLAS BARRAGAN MD REASON: shortness of breath PROCEDURE: PORTABLE CHEST 1V EXAM: CHEST 1 VIEW History: Shortness of breath COMPARISON: 08/15/2018 TECHNIQUE: Single portable radiograph of the chest FINDINGS: The cardiac silhouette is unremarkable. The lungs are clear bilaterally. The costophrenic sulci are clear and well demarcated. IMPRESSION: No radiographic evidence of an acute cardiopulmonary process. Electronically signed by: Kd Akbar MD (09/01/2018 2:29 PM) [id number] DICTATED AND SIGNED BY: KD AKBAR MD DATE: 09/01/18 1429 CC: LIAM VIERA MD; DALLAS BARRAGAN MD ~ [] Course & Med Decision Making Course & Med Decision Making Pertinent Labs and Imaging studies reviewed. (See chart for details) Vital signs are stable. Patient's d-dimer is within normal limits at today's visit. Patient's symptoms unlikely secondary to acute pulmonary embolism. The patient states currently he feels at his baseline state of health and states that he would like to go home if possible. I contacted patient's primary physician, Dr. Viera, and informed him of patient results. He stated he was comfortable with patient following up with him this week in clinic and agreed with outpatient treatment at this time. Recommended the patient contact Dr. Viera's office today to schedule an appointment in the next 3-5 days. Advised return to emergency department for any worsening symptoms. Patient voiced understanding and in agreement with treatment plan.[] Dragon Disclaimer Dragon Disclaimer This electronic medical record was generated, in whole or in part, using a voice recognition dictation system. Departure Departure: Impression: Primary Impression: Dyspnea Additional Impression: Cough Disposition: 01 HOME, SELF-CARE Condition: STABLE Referrals: LIAM VIERA MD (PCP) Patient Instructions: Shortness of Breath Additional Instructions: Your testing in the emergency department today showed no evidence of an acute cause of your symptoms. Your condition appears to be stable at this time. Your primary doctor would like you to call his office when you get home and schedule an appointment for follow-up in the next 3-5 days. Return to the emergency department for any worsening symptoms. Problem Qualifiers Primary Impression: Dyspnea Dyspnea type: dyspnea on exertion Qualified Codes: R06.09 - Other forms of dyspnea DALLAS BARRAGAN MD Sep 01, 2018 14:39
[2018-09-01 14:50] LABS: ALBUMIN 3.3 g/dL (3.4-5.0); ALBUMIN/GLOBULIN RATIO 0.9 (1.0-1.7); CALCIUM 9.1 mg/dL (8.5-10.1); CREATININE 1.8 mg/dL (0.7-1.3); GFR 38.8; POTASSIUM 3.6 mmol/L (3.5-5.1); TOTAL BILIRUBIN 0.5 mg/dL (0.2-1.0); TOTAL PROTEIN 7.1 g/dL (6.4-8.2)
--- NOTE | 2018-09-02 03:42 | EKG ---
[address] [address] Test Date: 2018-09-01 Test Time: 14:03:33 Pat Name: SMITH LANGE Department: Room: Gender: M Assistant Hall Director: DMITRIY : 1960 Requested By: DALLAS BARRAGAN Order Number: [id number] Reading MD: Measurements Intervals Squires Rate: 89 P: 53 PA: 138 QRS: 33 QRSD: 118 T: 31 QT: 372 QTc: 454 Interpretive Statements SINUS RHYTHM INTERPOLATED ATRIAL PREMATURE COMPLEX(ES) QRS(T) CONTOUR ABNORMALITY CONSIDER ANTEROSEPTAL MYOCARDIAL DAMAGE POSSIBLY ABNORMAL ECG RI6.01 No previous ECG available for comparison
== END 2018-09-01 15:33 | disposition home or self-care (01) ==
LOC: ER 13:47
DX: R06.09 Other forms of dyspnea (principal); R05 Cough; I13.0 Hypertensive heart and chronic kidney disease with heart failure and stage 1 through stage 4 chronic kidney disease, or unspecified chronic kidney disease; I50.9 Heart failure, unspecified; N18.9 Chronic kidney disease, unspecified; E78.00 Pure hypercholesterolemia, unspecified; Z87.442 Personal history of urinary calculi; I25.2 Old myocardial infarction; G89.29 Other chronic pain; M54.5 Low back pain; F17.210 Nicotine dependence, cigarettes, uncomplicated; Z90.49 Acquired absence of other specified parts of digestive tract
CPT/HCPCS: 36415; 71045; 80053; 82553; 83735; 84484; 85025; 85379; 85610; 85730; 93005; 99285